=== PATIENT | female | born 1945 | race Hispanic/Latino ===

== ENCOUNTER 2020-02-05 07:50 | Observation (INO) | payer MEDICARE, OTHER ==
[2020-02-02 16:34] LABS: BASOPHILS % 0.7 % (0.0-1.0); EOSINOPHILS # (AUTO) 0.1 (0.0-0.4); EOSINOPHILS % 1.9 % (0.0-6.0); HEMATOCRIT 35.5 % (34.2-44.1); HEMOGLOBIN 11.5 g/dL (12.0-16.0); LYMPHOCYTES # (AUTO) 1.6 (1.0-3.2); LYMPHOCYTES % 37.8 % (18.0-39.1); MEAN CORPUSCULAR HEMOGLOBIN 30.1 pg (28-32); MEAN CORPUSCULAR HGB CONC 32.4 g/dL (31-35); MEAN CORPUSCULAR VOLUME 92.9 fL (81-99); MONOCYTES # (AUTO) 0.4 (0.2-0.8); MONOCYTES % 8.6 % (4.4-11.3); NEUTROPHILS # (AUTO) 2.2 (2.1-6.9); NEUTROPHILS % 50.8 % (38.7-80.0); PLATELET COUNT 159 x10e3/uL (140-360); RED BLOOD COUNT 3.82 x10e6/uL (3.6-5.1)
--- NOTE | 2020-02-02 16:48 | Diagnostic Imaging Report ---
EXAM: CHEST 2 VIEWS DATE: 02/02/2020 3:56 PM INDICATION: Preoperative evaluation COMPARISON: None FINDINGS: The trachea is midline. The lungs are symmetrically expanded without evidence for large focal consolidation, pneumothorax, or significant pleural effusion. The cardiomediastinal silhouette and pulmonary vasculature are within normal limits. Mild tortuosity noted of the thoracic aorta. Degenerative changes noted of the visualized spine and shoulders. No acute osseous abnormality is identified. The surrounding soft tissues are unremarkable. IMPRESSION: No acute cardiopulmonary process identified. Signed by: Dr. Saad Luciano MD on 02/02/2020 4:45 PM
[2020-02-02 16:52] LABS: ANION GAP 14.5 mmol/L (8-16); CREATININE, SERUM 1.17 mg/dL (0.57-1.11); POTASSIUM 4.5 mmol/L (3.5-5.1)
[2020-02-02 16:56] LABS: INR 0.92; PARTIAL THROMBOPLASTIN TIME 28.1 seconds (23.8-35.5); PROTHROMBIN TIME 12.9 seconds (11.9-14.5)
[~2020-02-05] VITALS: Ht 165.1 cm; Wt 106.6 kg
[~2020-02-05 07:50] MED LIST: CLONIDINE HCL0.2 MG PO; CRESTOR10 MG PO; ESCITALOPRAM OX10 MG PO; ESCITALOPRAM OX20 MG PO; GABAPENTIN300 MG PO; LEVOCETIRIZINE D5 MG PO; LEVOTHYROXINE50 MCG PO; LIDOCAINE HCL (LTA) 4 ML SOLN ONE; LISINOPRIL-HCT1 EACH PO; METFORMIN HCL500 MG PO; METHOCARBAMOL750 MG PO; NORCO 7.5-3251 EACH PO; OXYBUTYNIN CHLOR5 MG PO; PROPOFOL IV EMULSION 10 MG/ML 20 ML VIAL ONE
[2020-02-05] MEDS ORDERED: THROMBIN FOR SOLN 5,000 UNIT VIAL ONE (08:07)
[2020-02-05] MEDS ORDERED: BACITRACIN 50,000 UNIT VIAL ONE (08:07)
[2020-02-05] MEDS ORDERED: BUPIVACAINE 0.25%/EPI 30ML SDV INJ ONE (08:07)
[2020-02-05] MEDS ORDERED: CEFAZOLIN SOD 1 GM/NS 50ML 100 ML IV ONE (08:46)
[2020-02-05] MEDS ORDERED: ACETAMINOPHEN 325 MG TAB PO PRN (12:45)
[2020-02-05] MEDS ORDERED: MORPHINE SULFATE 5 MG/ML VIAL IM PRN (12:45)
[2020-02-05] MEDS ORDERED: MAGNESIUM/ALUMINUM/SIMETHICONE 30 ML UDC PO PRN (12:45)
[2020-02-05] MEDS ORDERED: METHOCARBAMOL 750 MG TAB PO SCH (12:45)
[2020-02-05] MEDS ORDERED: PROMETHAZINE HCL (IM) 25 MG/ML VIAL IM PRN (12:45)
[2020-02-05] MEDS ORDERED: ONDANSETRON HCL INJ 2MG/ML 2ML 2 MG/ML VIAL IV PRN (12:45)
[2020-02-05] MEDS ORDERED: OXYCODONE/ACETAMINOPHEN 5-325 1 EACH TABLET PO PRN (12:45)
[2020-02-05] MEDS ORDERED: HYDROMORPHONE 2MG/ML 2 MG/ML ML IV PRN (12:45)
[2020-02-05] MEDS ORDERED: CARISOPRODOL 350 MG TAB PO PRN (12:45)
[2020-02-05] MEDS ORDERED: HYDRALAZINE HCL 20 MG/ML VIAL ONE (12:52)
[2020-02-05] MEDS ORDERED: FENTANYL CITRATE/PF 100MCG/2 ML INJ ONE (13:01)
[2020-02-05] MEDS ORDERED: HYDROMORPHONE 1MG/1ML INJ ONE (13:38)
[2020-02-05] MEDS ORDERED: ACETAMINOPHEN 1000 MG/100 ML IV ONE (14:14)
[2020-02-05] MEDS ORDERED: LIDOCAINE HCL 2% LOCAL INJ 5 ML SDV VIAL INJ ONE (14:14)
[2020-02-05] MEDS ORDERED: PROPOFOL IV EMULSION 10 MG/ML 20 ML VIAL ONE (14:14)
[2020-02-05] MEDS ORDERED: GLYCOPYRROLATE INJ 0.2 MG/ML VIAL ONE (14:14)
[2020-02-05] MEDS ORDERED: SEVOFLURANE INHAL SOLN 250 ML PEN BTL ONE (14:14)
[2020-02-05] MEDS ORDERED: ONDANSETRON HCL INJ 2MG/ML 2ML 2 MG/ML VIAL ONE (14:14)
[2020-02-05] MEDS ORDERED: ROCURONIUM BROMIDE 10 MG/ML 5ML VIAL IV ONE (14:14)
[2020-02-05] MEDS ORDERED: NEOSTIGMINE 1 MG/ML 10ML VIAL ONE (14:14)
[2020-02-05] MEDS ORDERED: DEXAMETHASONE SOD PHOS INJ 4 MG/ML VIAL ONE (14:14)
--- OUTSIDE RECORDS SUMMARY | 2020-02-05 14:22 | XMS REPORT ---
Author Author ADRIAN AGUILAR Organization Unknown Address Unknown Phone Care Team Providers Care Orthopaedic General Name Role Phone LAUREN AMISH PP Unavailable Reason for Referral No Reason for Referral was given. History of Present Illness No HPI available. Problems * Diabetes Mellitus (250.00); (Active) * Hypertension (401.9); (Active) * Osteopenia (733.90); (Active) * Normal Routine History And Physical Senior Citizen (65-80) (V70.0); ( Active) * Insomnia (780.52); (Active) * Rheumatoid Arthritis (714.0); (Active) * Allergic Rhinitis (477.9); (Active) Medication * Lisinopril-Hydrochlorothiazide 20-12.5 MG Oral Tablet; TAKE 1 TABLET DAILY.; Start Date: ; End Date: (Active) * MetFORMIN HCl 500 MG Oral Tablet; TAKE 1 TABLET TWICE DAILY; Start Date: ; End Date: (Active) * Vitamin E CAPS; TAKE 1 CAPSULE DAILY. (Active) * CloNIDine HCl 0.2 MG Oral Tablet; TAKE 1 TABLET TWICE DAILY.; Start Date: ; End Date: (Active) * Calcium TABS; TAKE 1 TABLET DAILY (Active) * Vitamin D CAPS; TAKE 1 CAPSULE DAILY (Active) * Sleep Aid TABS; TAKE 1 TABLET BEDTIME PRN (Active) * Melatonin TABS; TAKE 1 TABLET BEDTIME (Active) * Co Q 10 CAPS; TAKE 1 CAPSULE DAILY (Active) * Azithromycin 500 MG Oral Tablet; TAKE 1 TABLET DAILY FOR 7 DAYS FOR BRONCHITIS AND SINUS INFECTION.; Start Date: 10/25/2013; End Date: 11/01/2013 (Active) * Benzonatate 200 MG Oral Capsule; TAKE 1 CAPSULE 3 TIMES DAILY FOR COUGH; Start Date: 10/25/2013; End Date: 11/14/2013 (Active) * PredniSONE 20 MG Oral Tablet; TAKE 1 TABLET TWICE DAILY X 5 DAYS FOR SINUS INFLAMMATION, THEN 1 DAILY FOR 5 DAYS; Start Date: 10/25/2013; End Date: 11/04/2013 (Active) * Fluticasone Propionate 50 MCG/ACT Nasal Suspension; SPRAY 2 SQUIRTS INTO EACH NOSTRIL ONCE DAILY FOR ALLERGY PREVENTION; Start Date: 10/25/2013; End Date: (Active) Allergies and Adverse Reactions * No Known Drug Allergies (Active) Past Medical History * History of Sciatica (724.3); (Resolved) * History of Intervertebral Disc Degeneration (722.6); (Resolved) * History of Cystocele (596.89); (Resolved) * History of History Of 3 Previous Pregnancies (V61.5); (Resolved) Procedures Procedure Procedure Date Date Completed Status Tonsillectomy With Adenoidectomy - - Resolved Appendectomy - - Resolved Cholecystectomy - - Resolved Tubal Ligation - - Resolved Section - - Resolved Dilation And Curettage - - Resolved Immunization * Td * Pneumo * Influenza * Fluzone Intramuscular Injectable (Lot #: [id number]) - Administered on: 07/31/2013 Family History * Maternal history of Hypertension (V17.49); (Active) * Paternal history of Hypertension (V17.49); (Active) * Paternal history of Diabetes Mellitus (V18.0); (Active) * Paternal history of Carcinoma Of The Pancreas (Active) * Paternal history of Stroke Complications (Active) * Maternal history of Coronary Artery Disease (V17.49); (Active) * Maternal history of Acute Myocardial Infarction (V17.3); (Active) Social History * Marital History - Currently (Active) * Never A Smoker (Active) * Never Used Drugs (Active) * Being A Social Drinker (Active) Treatment Plan * MA Bone Density DXA Dual Energy 66511 07/31/2013 Routine * MA Breast mammogram screen bilateral 95722 07/31/2013 Routine * MA Digital Mammo DX Uni [id number] 09/16/2013 Routine Advance Directives * No Advance Directives available. Encounters * AUDIT 10/25/2013
--- OUTSIDE RECORDS SUMMARY | 2020-02-05 14:22 | XMS REPORT | Continuity of Care Document ---
Author Author [facility] [employer] Address Unknown Phone Unavailable Care Team Providers Care Urgent Care Nurse Practitioner Name Role Phone [facility] [employer] Unavailable Un available Problems Problem Status Onset Date Classification Date Reported Comments Source Osteopenia Active 10/30/2013 [facility] Diabetes Mellitus Active 10/30/2013 [facility] Hypertension Active 10/30/2013 [facility] Joint Pain, Localized In The Shoulder Active 09/16/2013 [facility] Sciatica Active 09/16/2013 [facility] Breast Pain Active 09/16/2013 [facility] Multiple Environmental Allergies Active 09/16/2013 [facility] Insomnia Active 10/30/2013 [facility] Rheumatoid Arthritis Active 10/30/2013 [facility] Allergic Rhinitis Active 10/30/2013 [facility] Medications Medication Details Route Status Patient Instructions Ordering Provider Order Date Source Fluticasone Propionate 50 MCG/ACT Nasal Suspension ; Start Date: 10/25/2013; End Date: (Active) Active 10/25/2013 [facility] Azithromycin 500 MG Oral Tablet ; Start Date: 10/25/2013; End Date: 11/01/2013 (Active) Active 10/25/2013 [facility] Benzonatate 200 MG Oral Capsule ; Start Date: 10/25/2013; End Date: 11/14/2013 (Active) Active 10/25/2013 [facility] PredniSONE 20 MG Oral Tablet ; Start Date: 10/25/2013; End Date: 11/04/2013 (Active) Active 10/25/2013 [facility] Fluticasone Propionate 50 MCG/ACT Nasal Suspension ; Start Date: 09/16/2013; End Date: (Active) Active 09/16/2013 [facility] Meloxicam 15 MG Oral Tablet ; Start Date: 04/29/2013; End Date: (Active) Active 04/29/2013 [facility] MetFORMIN HCl 500 MG Oral Tablet ; Start Date: ; End Date: (Active) Inactive [facility] Lisinopril-Hydrochlorothiazide 20-12.5 MG Oral Tablet ; Start Date: ; End Date: (Active) Inactive [facility] CloNIDine HCl 0.2 MG Oral Tablet ; Start Date: ; End Date: (Active) Inactive [facility] Actonel 35 MG Oral Tablet ; St art Date: ; End Date: (Active) Inactive [facility] PredniSONE 10 MG Oral Tablet (Active) Active [facility] Fluticasone Propionate SUSP ( Active) Active [facility] MetFORMIN HCl 500 MG Oral Tablet (Active) Active [facility] Ambien 5 MG Oral Tablet (Acti ve) Active [facility] Lisinopril-Hydrochlorothiazide 20-12.5 MG Oral Tablet (Active) Active [facility] Actonel TABS (Active) Active [facility] Melatonin TABS (Active) Active [facility] CloNIDine HCl 0.2 MG Oral Tablet (Active) Active [facility] Calcium TABS (Active) Active [facility] Vitamin D CAPS (Active) Active [facility] Vitamin E CAPS (Active) Active [facility] Co Q 10 CAPS (Active) Active [facility] Sleep Aid TABS (Active) Active [facility] Allergies, Adverse Reactions, Alerts Substance Category Reaction Severity Reaction type Status Date Reported Comments Source No Known Drug Allergies drug a llergy drug aller gy Active [facility] Immunizations Immunization Date Given Site Status Last Updated Comments Source Fluzone Intramuscular Injectable 07/31/2013 completed [facility] Td completed [facility] Pneumo completed [facility] Influenza completed [facility] Results No Data Provided for This Section Pathology Reports No Data Provided for This Section Diagnostic Reports No Data Provided for This Section Consultation Notes No Data Provided for This Section Discharge Summaries No Data Provided for This Section History and Physicals No Data Provided for This Section Vital Signs No Data Provided for This Section Encounters Location Location Details Encounter Type Encounter Number Reason For Visit Attending Provider ADM Date DC Date Status Source AUDIT [id number] 04/28/2013 04/28/2013 [facility] [place] brayden: AIDEE CROW, Status: Pen, Time: 10:15 AM [id number] 04/29/20 13 04/28/2013 [facility] AUDIT [id number] 04/30/2013 04/30/2013 [facility] AUDIT [id number] 05/05/2013 05/05/2013 [facility] [place] brayden: AIDEE CROW, Status: Doyle, Time: 8:30 AM [id number] 06/10/20 13 05/05/2013 [facility] AUDIT [id number] 07/31/2013 07/31/2013 [facility] AUDIT [id number] 09/16/2013 09/16/2013 [facility] AUDIT [id number] 10/25/2013 10/25/2013 [facility] AUDIT [id number] 10/30/2013 10/30/2013 [facility] Procedures No Data Provided for This Section Assessment and Plan No Data Provided for This Section Plan of Care Plan of Care Date Source [place] Bone Density DXA Dual Energy 56961 RoutineMA Breast mammogram screen bilateral 52070 07/31/2013 RoutineMA Digital Mammo DX Uni [id number] 09/16/2013 Routine[QLH] HEMOGLOBIN A1c 10/30/2013 Routine 10/30/2013 [facility] MA Bone Density DXA Dual Energy 59243 RoutineMA Breast mammogram screen bilateral 52927 07/31/2013 RoutineMA Digital Mammo DX Uni [id number] 09/16/2013 Routine 10/25/2013 [facility] MA Bone Density DXA Dual Energy 05505 RoutineMA Breast mammogram screen bilateral 30774 07/31/2013 RoutineMA Digital Mammo DX Uni [id number] 09/16/2013 Routine 09/16/2013 [facility] MA Bone Density DXA Dual Energy 80328 RoutineMA Breast mammogram screen bilateral 98809 07/31/2013 Routine[QLH] MICROALBUMIN, RANDOM URINE (W/CREATININE) 07/31/2013 RoutinePhysical Therapy Referral 07/31/2013 Routine 07/31/2013 [facility] [QLH] CBC (INCLUDES DIFF/PLT) 04/29/2013 Routine[QLH] CMP W/EGFR 04/29/2013 Routine[Q] LIPID PANEL WITH REFLEX TO DIRECT LDL 04/29/2013 Routine[QLH] TSH, 3RD GENERATION 04/29/2013 Routine[QLH] HEMOGLOBIN A1c 04/29/2013 Routine 04/30/2013 [facility] Social History Social History Date Source Marital History - Currently (Active) Never A Smoker (Active) Never Used Drugs (Active) Being A Social Drinker (Active) 10/30/2013 [facility] Family History Value Date S ource Maternal history of Hypertension (V17.49 ); (Active) Paternal history of Hypertension (V17.49); (Active) Paternal history of Diabetes Mellitus (V18.0); (Active) Paternal history of Carcinoma Of The Pancreas (Active) Paternal history of Stroke Complications (Active) Maternal history of Coronary Artery Disease (V17.49); (Active) Maternal history of Acute Myocardial Infarction (V17.3); (Active) 10/30/2013 [facility] Maternal history of Hypertension (V17.49 ); (Active) Paternal history of Hypertension (V17.49); (Active) Paternal history of Diabetes Mellitus (V18.0); (Active) Paternal history of Carcinoma Of The Pancreas (Active) Paternal history of Stroke Complications (Active) Maternal history of Coronary Artery Disease (V17.49); (Active) Maternal history of Acute Myocardial Infarction (V17.3); (Active) 10/25/2013 [facility] Maternal history of Hypertension (V17.49 ); (Active) Paternal history of Hypertension (V17.49); (Active) Paternal history of Diabetes Mellitus (V18.0); (Active) Paternal history of Carcinoma Of The Pancreas (Active) Paternal history of Stroke Complications (Active) Maternal history of Coronary Artery Disease (V17.49); (Active) Maternal history of Acute Myocardial Infarction (V17.3); (Active) 09/16/2013 [facility] Maternal history of Hypertension (V17.49 ); (Active) Paternal history of Hypertension (V17.49); (Active) Paternal history of Diabetes Mellitus (V18.0); (Active) Paternal history of Carcinoma Of The Pancreas (Active) Paternal history of Stroke Complications (Active) Maternal history of Coronary Artery Disease (V17.49); (Active) Maternal history of Acute Myocardial Infarction (V17.3); (Active) 07/31/2013 [facility] Maternal history of Hypertension (V17.49 ); (Active) Paternal history of Hypertension (V17.49); (Active) Paternal history of Diabetes Mellitus (V18.0); (Active) Paternal history of Carcinoma Of The Pancreas (Active) Paternal history of Stroke Complications (Active) Maternal history of Coronary Artery Disease (V17.49); (Active) Maternal history of Acute Myocardial Infarction (V17.3); (Active) 05/05/2013 [facility] Maternal history of Hypertension (V17.49 ); (Active) Paternal history of Hypertension (V17.49); (Active) Paternal history of Diabetes Mellitus (V18.0); (Active) Paternal history of Carcinoma Of The Pancreas (Active) Paternal history of Stroke Complications (Active) Maternal history of Coronary Artery Disease (V17.49); (Active) Maternal history of Acute Myocardial Infarction (V17.3); (Active) 04/30/2013 [facility] Maternal history of Hypertension (V17.49 ); (Active) Paternal history of Hypertension (V17.49); (Active) Paternal history of Diabetes Mellitus (V18.0); (Active) Paternal history of Carcinoma Of The Pancreas (Active) Paternal history of Stroke Complications (Active) Maternal history of Coronary Artery Disease (V17.49); (Active) Maternal history of Acute Myocardial Infarction (V17.3); (Active) 04/28/2013 [facility] Advance Directives Order Name Results Value Date Source Advance Directives Advance Dir ectives No Advance Directives available. 10/30/2013 [facility] Advance Directives Advance Dir ectives No Advance Directives available. 10/25/2013 [facility] Advance Directives Advance Dir ectives No Advance Directives available. 09/16/2013 [facility] Advance Directives Advance Dir ectives No Advance Directives available. 07/31/2013 [facility] Advance Directives Advance Dir ectives No Advance Directives available. 05/05/2013 [facility] Advance Directives Advance Dir ectives No Advance Directives available. 04/30/2013 [facility] Advance Directives Advance Dir ectives No Advance Directives available. 04/28/2013 [facility] Functional Status No Data Provided for This Section
--- OUTSIDE RECORDS SUMMARY | 2020-02-05 14:22 | XMS REPORT ---
Author Author ADRIAN BELTRAN Organization Unknown Address Unknown Phone Care Team Providers Care Threading Machine Setter Name Role Phone RUBY MELQUIADES PP Unavailable Reason for Referral No Reason for Referral was given. History of Present Illness No HPI available. Problems * Diabetes Mellitus (250.00); (Active) * Hypertension (401.9); (Active) * Joint Pain, Localized In The Shoulder (719.41); (Active) * Osteopenia (733.90); (Active) * Normal Routine History And Physical Senior Citizen (65-80) (V70.0); ( Active) * Sciatica (724.3); (Active) Medication * Lisinopril-Hydrochlorothiazide 20-12.5 MG Oral Tablet; TAKE 1 TABLET DAILY.; Start Date: ; End Date: (Active) * Actonel 35 MG Oral Tablet; TAKE 1 TABLET WEEKLY ON AN EMPTY STOMACH 30-60 MINUTES BEFORE BREAKFAST WITH 8-12 OUNCES OF WATER. DO NOT LIE DOWN AFTER TAKING PILL.; Start Date: ; End Date: (Active) * MetFORMIN HCl 500 MG Oral Tablet; TAKE 1 TABLET TWICE DAILY; Start Date: ; End Date: (Active) * Vitamin E CAPS; TAKE 1 CAPSULE DAILY. (Active) * Co Q 10 CAPS; TAKE DIRECTED. (Active) * Meloxicam 15 MG Oral Tablet; TAKE 1 TABLET DAILY WITH FOOD.; Start Date: 04/29/2013; End Date: (Active) * Sleep Aid TABS; TAKE 1 TABLET BEDTIME PRN (Active) * Melatonin TABS; TAKE 1 TABLET BEDTIME PRN (Active) * CloNIDine HCl 0.2 MG Oral Tablet; TAKE 1 TABLET TWICE DAILY.; Start Date: ; End Date: (Active) * Calcium TABS; TAKE 1 TABLET DAILY (Active) * Vitamin D CAPS; TAKE 1 CAPSULE DAILY (Active) Allergies and Adverse Reactions * No Known Drug Allergies (Active) Past Medical History * History of Hypertension (401.9); (Resolved) * History of Diabetes Mellitus (250.00); (Resolved) * History of Insomnia (780.52); (Resolved) * History of Vertigo (780.4); (Resolved) * History of Rheumatoid Arthritis (714.0); (Resolved) * History of Sciatica (724.3); (Resolved) * History of Intervertebral Disc Degeneration (722.6); (Resolved) * History of Osteopenia (733.90); (Resolved) * History of Tinnitus (388.30); (Resolved) * History of Hematuria (599.70); (Resolved) * History of Cystocele (596.89); (Resolved) * History of Acute Serous Otitis Media (381.01); (Resolved) * History of History Of 3 Previous Pregnancies (V61.5); (Resolved) Procedures Procedure Procedure Date Date Completed Status Tonsillectomy With Adenoidectomy - - Resolved Appendectomy - - Resolved Cholecystectomy - - Resolved Tubal Ligation - - Resolved Section - - Resolved Dilation And Curettage - - Resolved Immunization * Td * Pneumo * Influenza * Fluzone Intramuscular Injectable (Lot #: [id number]) - Administered on: 07/31/2013 Family History * [...] * MA Bone Density DXA Dual Energy 49085 07/31/2013 Routine * MA Breast mammogram screen bilateral 40679 07/31/2013 Routine * [[facility]] MICROALBUMIN, RANDOM URINE (W/CREATININE) 07/31/2013 Routine * Physical Therapy Referral 07/31/2013 Routine Advance Directives * No Advance Directives available. Encounters * AUDIT 07/31/2013
--- OUTSIDE RECORDS SUMMARY | 2020-02-05 14:22 | XMS REPORT ---
Author Author ADRIAN BELTRAN Organization Unknown Address Unknown Phone Care Team Providers Care Ramp Manager Name Role Phone RUBY, MELQUIADES PP Unavailable Reason for Referral No Reason for Referral was given. History of Present Illness No HPI available. Problems * Diabetes Mellitus (250.00); (Active) * Hypertension (401.9); (Active) * Joint Pain, Localized In The Shoulder (719.41); (Active) * Osteopenia (733.90); (Active) * Normal Routine History And Physical Senior Citizen (65-80) (V70.0); ( Active) * Breast Pain (611.71); (Active) * Multiple Environmental Allergies (V15.05); (Active) * Sciatica (724.3); (Active) * Insomnia (780.52); (Active) Medication * Lisinopril-Hydrochlorothiazide 20-12.5 MG Oral [...] CAPS; TAKE 1 CAPSULE DAILY (Active) * Fluticasone Propionate 50 MCG/ACT Nasal Suspension; USE 1 SPRAY IN EACH NOSTRIL ONCE DAILY NEEDED; Start Date: 09/16/2013; End Date: (Active) Allergies and Adverse Reactions [...] Influenza * Fluzone Intramuscular Injectable (Lot #: [id number]) - Administered on: 07/31/2013 Family History * [...] * MA Bone Density DXA Dual Energy 68799 07/31/2013 Routine * MA Breast mammogram screen bilateral 95339 07/31/2013 Routine * MA Digital Mammo DX Uni [id number] 09/16/2013 Routine Advance Directives * No Advance Directives available. Encounters * AUDIT 09/16/2013
--- OUTSIDE RECORDS SUMMARY | 2020-02-05 14:22 | XMS REPORT ---
Author Author ADRIAN BELTRAN Organization Unknown Address Unknown Phone Care Team Providers Care Storm Door Maker Name Role Phone RUBY MELQUIADES PP Unavailable Reason for Referral No Reason for Referral was given. History of Present Illness No HPI available. Problems * Normal Routine History And Physical Senior Citizen (65-80) (V70.0); ( Active) * Osteopenia (733.90); (Active) * Insomnia (780.52); (Active) * Rheumatoid Arthritis (714.0); (Active) * Allergic Rhinitis (477.9); (Active) * Hypertension (401.9); (Active) * Diabetes Mellitus (250.00); (Active) Medication * MetFORMIN HCl 500 MG Oral Tablet; TAKE 1 TABLET TWICE DAILY; Start Date: ; End Date: (Active) * Lisinopril-Hydrochlorothiazide 20-12.5 MG Oral Tablet; TAKE 1 TABLET DAILY.; Start Date: ; End Date: (Active) * Vitamin E CAPS; TAKE 1 CAPSULE DAILY. (Active) * Sleep Aid TABS; TAKE 1 TABLET BEDTIME PRN (Active) * Calcium TABS; TAKE 1 TABLET DAILY (Active) * Vitamin D CAPS; TAKE 1 CAPSULE DAILY (Active) * Melatonin TABS; TAKE 1 TABLET BEDTIME (Active) * Co Q 10 CAPS; TAKE 1 CAPSULE DAILY (Active) * CloNIDine HCl 0.2 MG Oral Tablet; TAKE 1 TABLET TWICE DAILY.; Start Date: ; End Date: (Active) * Fluticasone Propionate 50 MCG/ACT Nasal Suspension; SPRAY 2 SQUIRTS INTO EACH NOSTRIL ONCE DAILY FOR ALLERGY PREVENTION; Start Date: 10/25/2013; End Date: (Active) * Azithromycin 500 MG Oral Tablet; TAKE 1 TABLET DAILY FOR 7 DAYS FOR BRONCHITIS AND SINUS INFECTION.; Start Date: 10/25/2013; End Date: 11/01/2013 (Active) * Benzonatate 200 MG Oral Capsule; TAKE 1 CAPSULE 3 TIMES DAILY FOR COUGH; Start Date: 10/25/2013; End Date: 11/14/2013 (Active) Allergies and Adverse Reactions * No [...] Influenza * Fluzone Intramuscular Injectable (Lot #: [id number]) - Administered on: 07/31/2013 Family History * [...] * MA Bone Density DXA Dual Energy 30275 07/31/2013 Routine * MA Breast mammogram screen bilateral 70120 07/31/2013 Routine * MA Digital Mammo DX Uni [id number] 09/16/2013 Routine * [[facility]] HEMOGLOBIN A1c 10/30/2013 Routine Advance Directives * No Advance Directives available. Encounters * AUDIT 10/30/2013
--- OUTSIDE RECORDS SUMMARY | 2020-02-05 14:22 | XMS REPORT ---
Author Author ADRIAN Mai Te [facility] Organization Unknown Address Unknown Phone Care Team Providers Care Cad Designer Drafter Name Role Phone ChetanfidelinaAnsley roberts PP Reason for Referral No Reason for Referral was given. History of Present Illness No HPI available. Problems * Normal Routine History And Physical Senior Citizen (65-80) (V70.0); ( Active) Medication * PredniSONE 10 MG Oral Tablet (Active) * Fluticasone Propionate SUSP (Active) * MetFORMIN HCl 500 MG Oral Tablet (Active) * Ambien 5 MG Oral Tablet (Active) * Lisinopril-Hydrochlorothiazide 20-12.5 MG Oral Tablet (Active) * Actonel TABS; weekly (Active) * Melatonin TABS (Active) * CloNIDine HCl 0.2 MG Oral Tablet; TAKE 1 TABLET DAILY AT BEDTIME. (Active) * Calcium TABS (Active) * Vitamin D CAPS (Active) * Vitamin E CAPS (Active) * Co Q 10 CAPS (Active) Allergies and Adverse Reactions * No [...] Immunization * Td * Pneumo * Influenza Family History * Maternal history of Hypertension [...] (Active) * Being A Social Drinker (Active) Advance Directives * No Advance Directives available. Encounters * AUDIT 04/28/2013 * [facility], Provider: AIDEE CROW, Status: Doyle, Time: 10:15 AM 04/29/2013
--- OUTSIDE RECORDS SUMMARY | 2020-02-05 14:22 | XMS REPORT | Continuity of Care Document ---
Author Author [facility] t Organization [facility] Address [address] [place] [address] Phone Unavailable Care Team Providers Care Leathersmith Name Role Phone EFRAIN MELENDEZ Attphys Unavailable Payers Payer Name Policy Type Policy Number Effective Date Expiration Date S ource Problems Condition Name Condition Details Condition Category Status Onset Date Resolution Date Last Treatment Date Treating Clinician Comments Source Osteopenia Oste openia Active 10/30/2013 [facility] Active 2013-10-30 14:32:56 Milly Puri Diabetes Mellitus Diab etes Mellitus Active 10/30/2013 [facility] Active 2013-10-30 14:32:56 [facility] Hypertension Hype rtension Active 10/30/2013 [facility] Active 2013-10-30 14:32:56 Rafael [facility] [place] Joint Pain, Localized In The Shoulder Joint Pain, Localized In The Shoulder Active 09/16/2013 [facility] Active 2013-09-16 22:19:21 Milly Puri Sciatica Scia marii Active 09/16/2013 [facility] Active 2013-09-16 22:19:21 Milly Puri Breast Pain [facility] Pain Active 09/16/2013 [facility] Active 2013-09-16 22:19:21 Milly Puri Multiple Environmental Allergies Multiple Environmental Allergies Active 09/16/2013 [facility] Active 2013-09-16 22:19:21 Milly Puri Insomnia Inso mnia Active 10/30/2013 [facility] Active 2013-10-30 14:32:56 Milly Puri Rheumatoid Arthritis Rheu matoid Arthritis Active 10/30/2013 [facility] Active 2013-10-30 14:32:56 Milly Puri Allergic Rhinitis Haris rgic Rhinitis Active 10/30/2013 [facility] Active 2013-10-30 14:32:56 M emoelsi Puri Allergies, Adverse Reactions, Alerts Allergy Name Allergy Type Status Severity Reaction(s) Onset Date Inacti ve Date Treating Clinician Comments Source No Known Allergies DA Active U 2016-05-27 00:00:00 [facility] No Known Drug Allergies No Known Drug Allergies Active Milly Puri Family History Family Member Diagnosis Comments Start Date Stop Date Source Unknown Family Member Family History 2013-04-28 16:31:17 2 16:31:17 Milly Puri Social History Social Habit Start Date Stop Date Quantity Comments Source Social History 2013-10-30 14:32:56 2013-10-30 14:32:56 Milly Puri Medications Ordered Medication Name Filled Medication Name Start Date Stop Da te Current Medication? Ordering Clinician Indication Dosage Frequency Signature (SIG) Comments Components Source Melatonin TABS 2013-10-30 14:32:56 Yes (Act alan) Milly Puri Calcium TABS 2013-10-30 14:32:56 Yes (Activ e) Milly Puri Vitamin D CAPS 2013-10-30 14:32:56 Yes (Act alan) Milly Puri Vitamin E CAPS 2013-10-30 14:32:56 Yes (Act alan) Milly Puri Co Q 10 CAPS 2013-10-30 14:32:56 Yes (Activ e) Milly Puri Sleep Aid TABS 2013-10-30 14:32:56 Yes (Act alan) Milly Puri Fluticasone Propionate 50 MCG/ACT Nasal Suspension 2013-10 06:00:00 Yes ; Start Date: 10/25/2013; End Date: 08/1899 (Active) Milly Puri Azithromycin 500 MG Oral Tablet 2013-10-25 06:00:00 Yes ; Start Date: 10/25/2013; End Date: 11/01/2013 (Active) Milly Puri Benzonatate 200 MG Oral Capsule 2013-10-25 06:00:00 Yes ; Start Date: 10/25/2013; End Date: 11/14/2013 (Active) Milly Puri PredniSONE 20 MG Oral Tablet 2013-10-25 06:00:00 Yes ; Start Date: 10/25/2013; End Date: 11/04/2013 (Active) Milly Puri Fluticasone Propionate 50 MCG/ACT Nasal Suspension 2013-08 06:00:00 Yes ; Start Date: 09/16/2013; End Date: 08/1899 (Active) Milly Puri Actonel TABS 2013-05-05 20:04:52 Yes (Activ e) Milly Puri Meloxicam 15 MG Oral Tablet 2013-04-29 05:00:00 Yes ; Start Date: 04/29/2013; End Date: (Active) [facility] PredniSONE 10 MG Oral Tablet 2013-04-28 16:31:17 Yes (Active) Milly Puri Fluticasone Propionate SUSP 2013-04-28 16:31:17 Yes (Active) [facility] MetFORMIN HCl 500 MG Oral Tablet 2013-04-28 16:31:17 Yes (Active) [facility] Ambien 5 MG Oral Tablet 2013-04-28 16:31:17 Yes (Active) [facility] Lisinopril-Hydrochlorothiazide 20-12.5 MG Oral Tablet 2013-04-28 16:31:17 Yes (Active) [facility] Belinda nn CloNIDine HCl 0.2 MG Oral Tablet 2013-04-28 16:31:17 Yes (Active) [facility] MetFORMIN HCl 500 MG Oral Tablet Yes ; Start Date: ; End Date: (Active) [facility] Lisinopril-Hydrochlorothiazide 20-12.5 MG Oral Tablet Yes ; Start Date: ; End Date: 08/1899 (Active) [facility] CloNIDine HCl 0.2 MG Oral Tablet Yes ; Start Date: ; End Date: (Active) [facility] Actonel 35 MG Oral Tablet Yes ; Start Date: ; End Date: (Active) [facility] Procedures This patient has no known procedures. Plan of Care Planned Activity Planned Date Details Comments Source Future Scheduled Test 2013-10-30 14:32:56 Plan of Care [code = 1877 6-5] [facility] Scheduled Test 2013-10-25 21:30:15 Plan of Care [code = 1877 6-5] [facility] Future Scheduled Test 2013-09-16 22:19:21 Plan of Care [code = 1877 6-5] [facility] Scheduled Test 2013-07-31 20:03:40 Plan of Care [code = 1877 6-5] [facility] Scheduled Test 2013-04-30 16:02:16 Plan of Care [code = 1877 6-5] [facility] Encounters Start Date/Time End Date/Time Encounter Type Admission Type Att[facility] Care Department Encounter ID Source 2018-12-27 07:49:00 2018-12-27 07:49:00 Outpatient [id number] 2013-10-30 08:32:57 2013-10-30 08:32:56 Outpatient MHIE [facility] [id number] 2013-10-25 15:30:16 2013-10-25 15:30:15 Outpatient [facility]IE [facility]IE [id number] 2013-09-16 16:19:21 2013-09-16 16:19:21 Outpatient [facility]IE [facility]IE [id number] 2013-07-31 14:03:41 2013-07-31 14:03:40 Outpatient MHIE MHIE [id number] 2013-05-05 15:04:52 2013-05-05 15:04:52 Outpatient MHIE MHIE [id number] 2013-04-30 11:02:40 2013-04-30 11:02:16 Outpatient MHIE MHIE [id number] 2013-04-28 11:31:38 2013-04-28 11:31:17 Outpatient MHIE MHIE [id number] Results Test Description Test Time Test Comments Results Result Comments Source CHEST 2 VIEWS 2020-02-02 16:44:00 [facility] [address] [place] [address] Patient Name: ADRIAN GOMES MR #: [id number] : 1945 Age/Sex: 74/F Req #: [id number] [facility] Physician: Ordered by: EFRAIN MELENDEZ MD Report #: [id number] Location: OR Room/Bed: Procedure: [id number] DX/CHEST 2 VIEWS Exam Date: 02/02/20 Exam Time: 1556 REPORT STATUS: Signed EXAM: CHEST 2 VIEWS DATE: 02/02/2020 3:56 PM INDICATION: Preoperative evaluation COMPARISON: None FINDINGS: The trachea is midline. The lungs are symmetrically expanded without evidence for large focal consolidation, pneumothorax, or significant pleural effusion. The cardiomediastinal silhouette and pulmonary vasculature are within normal limits. Mild tortuosity noted of the thoracic aorta. Degenerative changes noted of the visualized spine and shoulders. No acute osseous abnormality is identified. The surrounding soft tissues are unremarkable. IMPRESSION: No acute cardiopulmonary process identified. Signed by: Dr. Saad Luciano MD on 02/02/2020 4:45 PM Dictated By: SAAD LUCIANO MD 1645 Transcribed By: TRISHA on 02/02/20 1645 COPY TO: EFRAIN MARTIN MD SCR MAMM BILATERAL CELINA CAD DIGITAL 2019-03-13 08:25:19 - SCR MAMM BILATERAL CELINA CAD DIGITALBILATERAL DIGITAL SCREENING MAMMOGRAM 3D/2D WITH CAD: 03/11/2019CLINICAL: Asymptomatic. Digital breast tomosynthesis was performed in addition to routine CC and MLO views. Current mammographic images were evaluated by either a [employer] M-Vu or a [employer] ImageChecker CAD (computer aided detection system). Comparison is made to exams dated 12/17/2017 mammogram, 2015 mammogram, and 12/11/2014 mammogram - [facility]-. The tissue of both breasts is heterogeneously dense. This may lower the sensitivity of mammography. There are post operative findings in the left breast. The previously noted seroma in the lower inner quadrant of the left breast, posterior depth, appears slightly smaller than on the prior exam. No new suspicious mass, architectural distortion, malignant type calcification, or lymph node abnormality detected. Breast architecture is stable compared to prior exams.IMPRESSION: NEGATIVEThere is no mammographic evidence of malignancy. Resume annual screening mammography in one year. Faye Waters M.D. ar/:03/13/2019 08:25:19 Admissions Assistant: Nicole MARIE, [facility]-FWletter sent: BIRADS 1-2 Normal Mammogram BI-RADS: 1 Negative INTERVERTEBRAL DISC 2018-11-14 12:23:00 RUN DATE: 11/14/18 [place] - Lab PAGE 1 RUN TIME: 1223 Specimen Inquiry RUN USER: INTERFACE PATIENT: ADRIAN GOMES LOC: [place] U #: [id number] AGE/SX: 73/F ROOM: [facility] RE11/13/18REG DR: Efrain Melendez MD : 41 BED: A DIS: STATUS: ADM Steve TLOC: SPEC #: [id number] RECD: 11/13/18 STATUS: BLAKE NIXON #: [id number] FLAQUITA: 11/13/[address] [facility] [address]: Efrain Melendez MD ENTERED: 11/13/18 SP TYPE: INT DISC OTHR DR: Josse Aguilera MD ORDERED: GROSS COPIES [place]: [place] [address] [place] [address] Efrain Melendez MD [address] [address] PROCEDURES: GROSS (11/14/18-104) TISSUES: LUMBAR REGION - LAMIA, LIGAMENT CLINICAL HISTORY COLLECTION DATE: 11/13/18 L3-4 SPINAL STENOSIS FINAL DIAGNOSIS Lumbar lamina and ligament, laminectomy: DENSE CONNECTIVE TISSUE COMPATIBLE WITH LIGAMENT FRAGMENTS OF UNREMARKABLE BONE CARTILAGE WITH MILD DEGENERATIVE CHANGE NEGATIVE FOR MALIGNANCY RRB/josselyn D [address], [address] MACROSCOPIC The specimen is received in formalin, labeled with the patient's name, and identified as "lumbar lamina and ligament". It consists of i rregular fragments of luis to light pink fibrous appearing tissue and possible fragments of bone. The specimen measures 3.0 X 2.2 X up to 0.8 cm in aggregate. After CONTINUED ON NEXT PAGE RUN DATE: 11/14/18 [place] [employer] [facility] PAGE 2 RUN TIME: 1223 Specimen Inquiry RUN USER: INTERFACE SPEC #: [id number] PATIENT: ADRIAN GOMES #[id number] (Continued) MACROSCOPIC (Continued) decalcification, customer account representative portions of tissue are submitted for histologic evaluation in a single cassette. GROSS PERFORMED AT [facility] [address] [place] [address] (p)[phone] MICROSCOPIC All of the stains, including any controls performed, stain appropriately. MICROSCOPIC PERFORMED AT [facility] [address] [place] [address] (P)[phone] PERFORMING SITE Diagnosis performed at: [facility], [place] [address] [facility], [place] [address] Signed SIGNATURE ON FILE Sanjeev Choudhury MD 11/14/18 1223 END OF REPORT GLUBED 2018-11-14 11:33:00 Test Item GLUBED (test code = GLUBED) 116 mg/dL 74-106 H Performed by certified chemical etch operator at [facility] [id number] 07:47:00* Test Item Value Reference Range Interpretation Comments GLUBED (test code = GLUBED) 88 mg/dL 74-106 N Performed by certified chemical etch operator at [facility] [id number] 01:16:00* Test Item Value Reference Range Interpretation Comments GLUBED (test code = GLUBED) 112 mg/dL 74-106 H Performed by certified chemical etch operator at [facility] [id number] 15:34:00* Test Item Value Reference Range Interpretation Comments GLUBED (test code = GLUBED) 168 mg/dL 74-106 H Performed by certified chemical etch operator at [facility] [id number] 10:57:00* Test Item Value Reference Range Interpretation Comments GLUBED (test code = GLUBED) 190 mg/dL 74-106 H Performed by certified chemical etch operator at [facility] - XR SPINE 1 V SPEC [id number] 09:26:00 FAX: Josse Keita MD [phone] [place]: St: [facility] FAX: Efrain Espitia MD [phone] Name: ADRIAN GOMES [facility] : 1945 Age/S: 73/F [address] Unit #: [id number] Loc: [place] [address] Phys: Efrain Melendez MD Acct: [id number] Dis Date: Status: REG [facility] PHONE #: [phone] Exam Date: 11/13/2018829 FAX #: [phone] Reason: LAMINECTOMY EXAMS: CPT CODE: [id number] XR SPINE 1 V SPEC LEVEL [id number] HISTORY: Laminectomy. COMPARISON: None available. Crosstable lateral lumbar spine obtained at 7:58 AM demonstrating marker at L3-L4 level. Crosstable lateral lumbar spine obtained at 8:07 AM demonstrating marker at L3-L4 level. at 0936 R eported and signed by: Rigoberto Avina M.D. CC: Edwardo miller,Josse Arthur; Efrain Melendez MD Technologist: CURT ROJO JR Trnscrd Date/Time/By: 11/13/2018 (925) : By: [email or web address] Orig Print D/T: S: 11/13/2018 (0642) PAGE 1 Signed Report - XR SPINE 1 V SPEC [id number] 09:26:00 FAX: Josse Keita MD [phone] [place]: St: REG FAX: Efrain Espitia MD [phone] Name: MIREYAADRIANCHASE PORRAS [facility] : 1945 Age/S: 73/F [address] [facility] Unit #: [id number] Loc: [place] [address] Phys: Efrain Melendez MD Acct: [id number] Dis Date: Status: REG [facility] PHONE #: [phone] Exam Date: 11/13/2018819 FAX #: [phone] Reason: LAMINECTOMY EXAMS: CPT CODE: [id number] XR SPINE 1 V SPEC LEVEL [id number] HISTORY: Laminectomy. COMPARISON: None available. Crosstable lateral lumbar spine obtained at 7:58 AM demonstrating marker at L3-L4 level. Crosstable lateral lumbar spine obtained at 8:07 AM demonstrating marker at L3-L4 level. at 0926 R eported and signed by: Rigoberto Avina M.D. CC: Josse Ortez; Efrain Melendez MD Technologist: CURT ROJO JR Trnscrd Date/Time/By: 11/13/2018 (37) : By: [email or web address] Orig Print D/T: S: 11/13/2018 (5851) PAGE 1 Signed Report [id number] 07:55:00* Test Item Value Reference Range Interpretation Comments GLUBED (test code = GLUBED) 116 mg/dL 74-106 H Performed by certified chemical etch operator at [facility] PROTHROMBIN [id number] 17:18:00* Test Item Value Reference Range Interpretation Comments PROTHROMBIN TIME PATIENT (test code = PTP) 12.2 seconds 9.0-14.0 N INTERNATIONAL NORMAL RATIO (test code = INR) 1.0 0.8-1.2 N The therapeutic range for oral anticoagulant therapy formost indications is an international normalized ratio (INR)of between 2.0 and 3.0. The recommended therapeutic INRrange for various clinical situations is listed below: Clinical Situation INR range Pulmonary e mbolism treatment (2.0-3.0)Venous thrombosis treatmentVenous thrombosis prophylaxis (high risk surgery)Prevention of systemic embolism from: Acute myocardial infarction Valvular heart disease Atrial fibrillation Mechanical prosthetic heart valves (2.5-3.5) THROMBOPLASTIN TIME [id number] 17:18:00* Test Item Value Reference Range Interpretation Comments THROMBOPLASTIN TIME PARTIAL (test code = PTT) 33.0 seconds 25.0-36. 5 N BASIC METABOLIC [id number] 16:44:00* Test Item Value Reference Range Interpretation Comments SODIUM (test code = NA) 142 mmol/L 136-145 N POTASSIUM (test code = K) 4.6 mmol/L 3.5-5.1 N CHLORIDE (test code = CL) 108.0 mmol/L 98-107 H CARBON DIOXIDE (test code = CO2) 27.0 mmol/L 21-32 N ANION GAP (test code = GAP) 11.6 10-20 N GLUCOSE (test code = GLU) 109 mg/dL 74-106 H BLOOD UREA NITROGEN (test code = BUN) 30 mg/dL 7-18 H GLOMERULAR FILTRATION RATE (test code = GFR) 44 mL/min >=60 Estimated GFR by using Modified MDRD formula.Chronic kidney disease is defined as either kidney damageor GFR <60 mL/min/1.73 m2 for >3 months. CREATININE (test code = CREAT) 1.20 mg/dL 0.55-1.02 H Note change in reference range due to change in reagent. BUN/CREATININE RATIO (test code = BUN/CREA) 25.0 10-20 H CALCIUM (test code = CA) 8.7 mg/dL 8.5-10.1 N CBC W/AUTO [id number] 16:21:00* Test Item Value Reference Range Interpretation Comments WHITE BLOOD CELL (test code = WBC) 6.3 K/mm3 4.5-12.5 N RED BLOOD CELL (test code = RBC) 3.96 mill/mm3 3.7-5.2 N HEMOGLOBIN (test code = HGB) 12.0 gram/dL 11.5-15.5 N HEMATOCRIT (test code = HCT) 37.1 % 36.0-46.0 N MEAN CELL VOLUME (test code = MCV) 93.7 fL 80-98 N MEAN CELL HGB (test code = MCH) 30.3 picogram 27.0-33.0 N MEAN CELL HGB CONCETRATION (test code = MCHC) 32.3 gram/dL 33.0-36. 0 L RED CELL DISTRIBUTION WIDTH (test code = RDW) 12.1 % 11.6-16. 2 N RED CELL DISTRIBUTION WIDTH SD (test code = RDW-SD) 42.0 fL 37 .0-51.0 N PLATELET COUNT (test code = PLT) 198 K/mm3 150-450 N MEAN PLATELET VOLUME (test code = MPV) 11.3 fL 6.7-11.0 H NEUTROPHIL % (test code = NT%) 67.1 % 39.0-69.0 N IMMATURE GRANULOCYTE % (test code = IG%) 0.3 % 0.0-5.0 N LYMPHOCYTE % (test code = LY%) 24.3 % 25.0-55.0 L MONOCYTE % (test code = MO%) 6.8 % 0.0-10.0 N EOSINOPHIL % (test code = EO%) 1.0 % 0.0-5.0 N BASOPHIL % (test code = BA%) 0.5 % 0.0-1.0 N NUCLEATED RBC % (test code = NRBC%) 0.0 % 0-0 N NEUTROPHIL # (test code = NT#) 4.22 K/mm3 1.8-7.7 N IMMATURE GRANULOCYTE # (test code = IG#) 0.02 x10 3/uL 0-0.03 N LYMPHOCYTE # (test code = LY#) 1.53 K/mm3 1.0-5.0 N MONOCYTE # (test code = MO#) 0.43 K/mm3 0-0.8 N EOSINOPHIL # (test code = EO#) 0.06 K/mm3 0.0-0.5 N BASOPHIL # (test code = BA#) 0.03 K/mm3 0.0-0.2 N NUCLEATED RBC # (test code = NRBC#) 0.00 K/mm3 0.0-0.1 N MANUAL DIFF REQUIRED (test code = MDIFF) NO CBC W/AUTO [id number] 16:18:00* Test Item Value Reference Range Interpretation Comments WHITE BLOOD CELL (test code = WBC) K/mm3 4.5-12.5 RED BLOOD CELL (test code = RBC) mill/mm3 3.7-5.2 HEMOGLOBIN (test code = HGB) 12.0 gram/dL 11.5-15.5 N HEMATOCRIT (test code = HCT) 37.1 % 36.0-46.0 N MEAN CELL VOLUME (test code = MCV) fL 80-98 MEAN CELL HGB (test code = MCH) picogram 27.0-33.0 MEAN CELL HGB CONCETRATION (test code = MCHC) gram/dL 33.0-36. 0 RED CELL DISTRIBUTION WIDTH (test code = RDW) % 11.6-16. 2 RED CELL DISTRIBUTION WIDTH SD (test code = RDW-SD) fL 37 .0-51.0 PLATELET COUNT (test code = PLT) K/mm3 150-450 MEAN PLATELET VOLUME (test code = MPV) fL 6.7-11.0 NEUTROPHIL % (test code = NT%) % 39.0-69.0 IMMATURE GRANULOCYTE % (test code = IG%) % 0.0-5.0 LYMPHOCYTE % (test code = LY%) % 25.0-55.0 MONOCYTE % (test code = MO%) % 0.0-10.0 EOSINOPHIL % (test code = EO%) % 0.0-5.0 BASOPHIL % (test code = BA%) % 0.0-1.0 NEUTROPHIL # (test code = NT#) K/mm3 1.8-7.7 LYMPHOCYTE # (test code = LY#) K/mm3 1.0-5.0 MONOCYTE # (test code = MO#) K/mm3 0-0.8 EOSINOPHIL # (test code = EO#) K/mm3 0.0-0.5 BASOPHIL # (test code = BA#) K/mm3 0.0-0.2 - XR CHEST 2 [id number] 16:08:00 FAX: Josse Keita MD [phone] [place]: O St: PRE FAX: Efrain Espitia MD [phone] Name: ADRIAN GOMES [facility] : 1945 Age/S: 73/F [address] Unit #: [id number] Loc: [place] [address] Phys: Efrain Melendez MD Acct: [id number] Dis Date: Status: PRE SDC PHONE #: [phone] Exam Date: 11/11/2018 4239 FAX #: [phone] Reason: PRE OP EXAMS: CPT CODE: [id number] XR CHEST 2 V 71690 EXAM: Chest x-ray, 2 views; INFORMATION: Lumbar spinal stenosis; preop; FINDINGS: Lungs are clear; no infiltrates, no edema; no effusions, no pneumothorax. Calcifications and slight tortuosity of the thoracic aorta; the heart is normal in size. IMPRESSION: No evidence of active cardiopulmonary disease. at 1605 Reported and signed by: Freddie Yu M.D. CC: Josse Aguilera; Efrain Melendez MD Technologist: ESTRELLA Estrada) Trnscrd Date/Time/By: 11/11/2018 (5445) : By: [email or web address] Orig Print D/T: S: 11/11/2018 (1821) PAGE 1 Signed Report
--- OUTSIDE RECORDS SUMMARY | 2020-02-05 14:22 | XMS REPORT ---
Author Author ADRIAN Kaufman Organization Unknown Address Unknown Phone Care Team Providers Care Automobile Body Worker Name Role Phone Brittanie Kaufman PP Unavailable Reason for Referral No Reason for Referral was given. History of Present Illness No HPI available. Problems * Normal Routine History And Physical Senior Citizen (65-80) (V70.0); ( Active) * Osteopenia (733.90); (Active) * Diabetes Mellitus (250.00); (Active) * Hypertension (401.9); (Active) * Joint Pain, Localized In The Shoulder (844.77); (Active) Medication * MetFORMIN HCl 500 MG Oral Tablet; TAKE 1 TABLET TWICE DAILY; Start Date: ; End Date: (Active) * Lisinopril-Hydrochlorothiazide 20-12.5 MG Oral Tablet; TAKE 1 TABLET DAILY.; Start Date: ; End Date: (Active) * Actonel TABS; weekly (Active) * Melatonin TABS; TAKE DIRECTED PER PACKAGE INSTRUCTIONS. (Active) * CloNIDine HCl 0.2 MG Oral Tablet; TAKE 1 TABLET TWICE DAILY.; Start Date: ; End Date: (Active) * Calcium TABS (Active) * Vitamin D CAPS (Active) * Vitamin E CAPS; TAKE 1 CAPSULE DAILY. (Active) * Co Q 10 CAPS; TAKE DIRECTED. (Active) * Meloxicam 15 MG Oral Tablet; TAKE 1 TABLET DAILY WITH FOOD.; Start Date: 04/29/2013; End Date: (Active) Allergies and Adverse Reactions [...] A Social Drinker (Active) Treatment Plan * [QLH] CBC (INCLUDES DIFF/PLT) 04/29/2013 Routine * [QLH] CMP W/EGFR 04/29/2013 Routine * [Q] LIPID PANEL WITH REFLEX TO DIRECT LDL 04/29/2013 Routine * [QLH] TSH, 3RD GENERATION 04/29/2013 Routine * [QLH] HEMOGLOBIN A1c 04/29/2013 Routine Advance Directives * No Advance Directives available. Encounters * AUDIT 04/30/2013 * [facility], Provider: AIDEE CROW, Status: Doyle, Time: 8:30 AM 06/10/2013
--- OUTSIDE RECORDS SUMMARY | 2020-02-05 14:22 | XMS REPORT ---
Author Author ADRIAN CROW Organization Unknown Address Unknown Phone Care Team Providers Care Client Services Representative Name Role Phone AIDEE CROW PP Unavailable Reason for Referral No Reason for Referral was given. History of Present Illness No HPI available. Problems * Normal Routine History And Physical Senior Citizen (65-80) (V70.0); ( Active) * Osteopenia (733.90); (Active) * Diabetes Mellitus (250.00); (Active) * Hypertension (401.9); (Active) * Joint Pain, Localized In The Shoulder (232.39); (Active) Medication * MetFORMIN HCl 500 MG [...] No Advance Directives available. Encounters * AUDIT 05/05/2013 * [facility], Provider: AIDEE CROW, Status: Doyle, Time: 8:30 AM 06/10/2013
[2020-02-05 15:30] VITALS: BP 134/72
[2020-02-05] MEDS ORDERED: METHOCARBAMOL 500 MG TAB PO PRN (16:00)
[2020-02-05 16:01] VITALS: BP 116/50
[2020-02-05] MEDS: METFORMIN HCL 500 MG TAB PO SCH (17:41)
[2020-02-05] MEDS: CLONIDINE HCL 0.2 MG TAB PO SCH (17:41)
--- NOTE | 2020-02-05 18:29 | NUR ---
{null, pt arrived to unit , resp even and labored, no c/o pain when pt arrived pt has family member at bedside , pt able to make needs known, pt oriented to room and call light, bed in lowest position, bed rails up x2, call light in reach. }
--- NOTE | 2020-02-05 19:05 | NUR ---
{null, PATIENT IN BED. CALL LIGHT WITHIN REACH. BEDSIDE SHIFT REPORT RECEIVED FROM PREVIOUS NURSE. }
--- NOTE | 2020-02-05 19:29 | NUR ---
{null, walking rounds complete, pt stable at shift change. report given to oncoming nurse. }
[2020-02-05] MEDS: CEFAZOLIN SOD 1 GM/NS 50ML 50 ML IV SCH (19:59)
[2020-02-05 20:00] VITALS: BP_SYST 116; BP_SYST 137; BP_DIAS 50; BP_DIAS 62
[2020-02-05 20:30] VITALS: BP 137/62
[2020-02-05] MEDS ORDERED: ZOLPIDEM TARTRATE 5 MG TAB PO PRN (21:00)
[2020-02-05] MEDS ORDERED: SIMVASTATIN 20 MG TAB PO SCH (21:00)
[2020-02-05] MEDS ORDERED: GABAPENTIN 300 MG CAP PO SCH (21:00)
[2020-02-05] MEDS: LACTATED RINGER'S 1,000 ML IV SCH (22:05)
[2020-02-06] VITALS: BP 146/62
[2020-02-06] MEDS: CEFAZOLIN SOD 1 GM/NS 50ML 50 ML IV SCH ×2 (04:00→11:14)
--- NOTE | 2020-02-06 05:41 | Operative Report ---
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 PROCEDURE: Redo right L3-4 laminotomy, medial facetectomy, and microsurgical diskectomy, [id number]. ANESTHESIA: General. INDICATIONS: The patient is a 74-year-old woman who has previously undergone L3-4 bilateral laminectomy without diskectomy with good results. She now presents with recurrent low back pain radiating down the right leg and right leg weakness and is found to have a newly herniated L3-4 disk herniation with inferior migration of the extruded disk fragment into the right L4 lateral recess adjacent to the pedicle. She was taken to surgery for redo-laminotomy and microsurgical diskectomy. PROCEDURE IN DETAIL: After induction of general anesthesia, the patient was placed on the operating table in prone position over Khris frame. Lumbar region was prepped and draped in sterile fashion. A preoperative x-ray was obtained. A midline incision was created over her previous incision scar. The lumbar fascia was opened to the right of midline and subperiosteal dissection was carried out to expose the right side of the residual L3-4 facet joint and lamina. Two x-rays were taken until correct localization was confirmed. The operating microscope was brought in. A high-speed drill equipped by [employer] was used to extend the medial facetectomy at L3-4 slightly laterally. The lateral margin of dural sac and L4 traversing nerve root was exposed and followed all the way down to the medial aspect of the pedicle. The herniated disk material came into view in the region of the axilla of the L4 nerve root. This was mobilized with a micro ball probe and removed as multiple fragments with a micropituitary rongeur until the nerve root and the dural sac had become fully decompressed. Meticulous hemostasis was secured. The retractor was removed. The lumbar fascia was closed with 0 Vicryl suture. Subcutaneous layer was closed with 2-0 Vicryl sutures. The skin was closed with 3-0 Monocryl sutures in subcuticular fashion. Steri-Strips and dressing were applied. The patient was awakened, extubated, and taken to postanesthesia care unit in stable condition. No intraoperative complications were encountered. ESTIMATED BLOOD LOSS: 50 mL. Gonzales Melendez MD PP/FLO /[id number]
[2020-02-06] MEDS: LACTATED RINGER'S 1,000 ML IV SCH (06:29)
--- NOTE | 2020-02-06 07:12 | NUR ---
{null, GAVE BEDSIDE SHIFT REPORT TO ONCOMING NURSE. CALL LIGHT WITHIN REACH. PATIENT IN BED. }
[2020-02-06 07:52] VITALS: BP 132/66
[2020-02-06] MEDS: METFORMIN HCL 500 MG TAB PO SCH (08:39)
[2020-02-06] MEDS: CLONIDINE HCL 0.2 MG TAB PO SCH (08:39)
[2020-02-06 08:40] VITALS: BP 168/65
[2020-02-06] MEDS ORDERED: LISINOPRIL 20 MG TAB PO SCH (09:00)
[2020-02-06] MEDS ORDERED: SIMVASTATIN 40 MG TAB PO SCH (09:00)
[2020-02-06] MEDS ORDERED: NORCO 7.5-3251 EACH PO (11:31)
[2020-02-06 11:46] VITALS: BP 147/77
--- NOTE | 2020-02-06 12:53 | NUR ---
{null, Patient discharged home, , dressing changed on lower back, no drainage or bleeding, discharge instruction given, IV removed with tip intact, no ss of infiltration. family here to pick her }
== END 2020-02-06 12:52 | disposition home or self-care (01) ==
LOC: OR 07:50 → PACU V 12:42 → MED/SURG 15:00
PROVIDERS: ADMIT Neurological Surgery; ATTEND Neurological Surgery
DX: M51.16 Intervertebral disc disorders with radiculopathy, lumbar region (principal); I10 Essential (primary) hypertension; E11.9 Type 2 diabetes mellitus without complications; Z85.3 Personal history of malignant neoplasm of breast; M19.90 Unspecified osteoarthritis, unspecified site; Z90.49 Acquired absence of other specified parts of digestive tract; Z90.5 Acquired absence of kidney; Z85.528 Personal history of other malignant neoplasm of kidney; Z79.84 Long term (current) use of oral hypoglycemic drugs; Z87.891 Personal history of nicotine dependence; E78.00 Pure hypercholesterolemia, unspecified; Z01.810 Encounter for preprocedural cardiovascular examination; Z01.812 Encounter for preprocedural laboratory examination; Z01.818 Encounter for other preprocedural examination; Z11.59 Encounter for screening for other viral diseases
CPT/HCPCS: 36415 ×3; 63042; 71046; 72020; 80048; 82948 ×2; 85025; 85610; 85730; 86850; 86900; 87635; 88304; 93005; G0378 ×2; J0131; J0360; J0690 ×2; J1100; J1170 ×2; J2001; J2405; J2704; J2710; J3010; J7121 ×2